=== PATIENT | male | born 1960 | race African-American/Black ===

== ENCOUNTER 2019-10-27 22:31 | Inpatient (IN) | payer MEDICAID ==
[~2019-10-27] VITALS: Ht 190.5 cm; Wt 61.7 kg
[2019-10-27] MEDS ORDERED: VANCOMYCIN 1 G PREMIX 200 ML IV ONE (22:45)
[2019-10-27] MEDS ORDERED: PIPERACILLIN/TAZ 3.375G PREMIX 50 ML IV ONE (22:45)
[2019-10-27] MEDS ORDERED: IPRATROPIUM BROMIDE (0.02%) 0.5MG/2.5ML NEB HHN STA (23:05)
[2019-10-27] MEDS ORDERED: METHYLPREDNISOLONE SOD SUCC 125 MG/2 ML VIAL IV STA (23:05)
[2019-10-27] MEDS ORDERED: ALBUTEROL (0.083%) 2.5MG/3ML NEB HHN STA (23:05)
[2019-10-28 00:06] LABS: HEMATOCRIT. 39.6 % (42.0-52.0); HEMOGLOBIN. 13.4 g/dL (14.0-18.0); MEAN CORPUSCULAR HEMOGLOBIN 30.5 pg (28.0-32.0); MEAN CORPUSCULAR VOLUME 89.7 fL (80.0-94.0); MEAN PLATELET VOLUME 7.3 fl (7.4-10.4); PLATELET 483 x1000/uL (130-400); RED BLOOD CELL COUNT 4.41 mill/uL (4.7-6.1)
[2019-10-28] MEDS: IPRATROPIUM/ALBUTEROL 0.5-3(2.5)MG/3ML NEB HHN SCH (00:10)
[2019-10-28 00:12] LABS: CHLORIDE 101 mEq/L (98-107)
[2019-10-28 00:16] LABS: INR 1.2; PROTHROMBIN TIME 12.4 sec (9.6-11.0)
[2019-10-28 00:17] LABS: BG BASE EXCESS 3.5 mmol/L (-2.0-2.0); BG CARBOXYHEMOGLOBIN 0.2 % (0.5-1.5); BG DEOXYHEMOGLOBIN 0.4 % (0.0-5.0); BG FRACTION INSPIRED OXYGEN 100; BG HCO3 ACT 31.4 mmol/L (22.0-26.0); BG METHEMOGLOBIN 0.4 % (0.0-1.5); BG OXYGEN SATURATION 99.6 % (92.0-98.5); BG PCO2 60.9 mmHg (35.0-45.0); BG PO2 282.9 mmHg (75.0-100.0); BG SAMPLE SITE RIGHT RADIAL; BG TIDAL VOLUME(mL) 500 mL; BG TOTAL HEMOGLOBIN 15.8 g/dL (12.0-18.0); BG VENT MODE VENT - A/C; BG VENT RATE 12 set
[2019-10-28] MEDS ORDERED: OLANZAPINE 10 MG/VIAL IM NR (01:45)
[2019-10-28] MEDS ORDERED: IPRATROPIUM/ALBUTEROL 0.5-3(2.5)MG/3ML NEB HHN PRN (02:15)
[2019-10-28 03:14] LABS: PLATELET ESTIMATE SLIGHTLY INCREASED
[2019-10-28] MEDS ORDERED: VANCOMYCIN 1500MG in DEXTROSE 5% WATER 250ML IV SCH (06:00)
[2019-10-28 06:22] LABS: CHLORIDE 98 mEq/L (98-107)
[2019-10-28] MEDS: PIPERACILLIN/TAZ 3.375G PREMIX 50 ML IV SCH ×2 (08:16→16:24)
[2019-10-28] MEDS: HYDROCORTISONE SOD SUCCINATE 100 MG/2 ML VIAL IV SCH ×3 (08:16→23:05)
[2019-10-28 08:49] LABS: BG BASE EXCESS 3.1 mmol/L (-2.0-2.0); BG CARBOXYHEMOGLOBIN 0.3 % (0.5-1.5); BG DEOXYHEMOGLOBIN 0.1 % (0.0-5.0); BG FRACTION INSPIRED OXYGEN 100; BG HCO3 ACT 30.7 mmol/L (22.0-26.0); BG METHEMOGLOBIN 0.1 % (0.0-1.5); BG OXYGEN SATURATION 99.9 % (92.0-98.5); BG OXYHEMOGLOBIN 99.5 % (94.0-97.0); BG PCO2 60.3 mmHg (35.0-45.0); BG PH 7.325 (7.350-7.450); BG PO2 417.8 mmHg (75.0-100.0); BG SAMPLE SITE RIGHT RADIAL; BG TIDAL VOLUME(mL) 500 mL; BG TOTAL HEMOGLOBIN 14.1 g/dL (12.0-18.0); BG VENT MODE VENT - A/C; BG VENT RATE 12 set
[2019-10-28] MEDS: ENOXAPARIN 40MG/0.4ML SYR SUBCUT SCH (10:26)
[2019-10-28] MEDS: LORAZEPAM 2MG/ML CPJ IV PRN (12:09)
[2019-10-28] MEDS ORDERED: CLONIDINE 0.1MG TABLET PO NR (14:15)
[2019-10-28] MEDS: VANCOMYCIN 1 G PREMIX 200 ML IV SCH ×2 (14:49→23:05)
[2019-10-28] MEDS: PANTOPRAZOLE SODIUM 40 MG/VIAL IV SCH (14:49)
[2019-10-28] MEDS: MULTIVITAMINS,THER W-MINERALS TABLET PO SCH (16:06)
[2019-10-28 18:53] LABS: BG BASE EXCESS 6.1 mmol/L (-2.0-2.0); BG CARBOXYHEMOGLOBIN 0.3 % (0.5-1.5); BG FRACTION INSPIRED OXYGEN 60; BG METHEMOGLOBIN 0.2 % (0.0-1.5); BG OXYHEMOGLOBIN 94.5 % (94.0-97.0); BG PCO2 64.5 mmHg (35.0-45.0); BG PO2 70.7 mmHg (75.0-100.0); BG SAMPLE SITE RIGHT RADIAL; BG TIDAL VOLUME(mL) 500 mL; BG VENT MODE VENT - A/C; BG VENT RATE 14 set
[2019-10-28] MEDS ORDERED: IOHEXOL-350 100 ML BOTTLE ONE (23:11)
[2019-10-29] MEDS: IPRATROPIUM/ALBUTEROL 0.5-3(2.5)MG/3ML NEB HHN SCH ×5 (04:00→20:15)
[2019-10-29 05:37] LABS: BASOPHILS % 0.2 % (0.0-2.0); HEMATOCRIT. 34.5 % (42.0-52.0); HEMOGLOBIN. 11.8 g/dL (14.0-18.0); LYMPHOCYTES % 7.4 % (20.0-50.0); MEAN CORPUSCULAR HEMOGLOBIN 30.4 pg (28.0-32.0); MEAN CORPUSCULAR VOLUME 88.9 fL (80.0-94.0); MONOCYTES % 5.8 % (2.0-8.0); NEUTROPHILS % 86.6 % (40.0-76.0); PLATELET 440 x1000/uL (130-400); RED BLOOD CELL COUNT 3.88 mill/uL (4.7-6.1); RED CELL DISTRIBUTION WIDTH 14.4 % (11.6-14.6)
[2019-10-29 05:49] LABS: CHLORIDE 98 mEq/L (98-107)
[2019-10-29] MEDS: VANCOMYCIN 1 G PREMIX 200 ML IV SCH (08:10)
[2019-10-29] MEDS: HYDROCORTISONE SOD SUCCINATE 100 MG/2 ML VIAL IV SCH ×3 (08:10→23:51)
[2019-10-29] MEDS: PIPERACILLIN/TAZ 3.375G PREMIX 50 ML IV SCH ×4 (08:10→23:51)
[2019-10-29] MEDS: ACETAMINOPHEN 325MG TABLET PO PRN (08:43)
[2019-10-29] MEDS: PANTOPRAZOLE SODIUM 40 MG/VIAL IV SCH (08:46)
[2019-10-29] MEDS: ENOXAPARIN 40MG/0.4ML SYR SUBCUT SCH (08:47)
[2019-10-29] MEDS: LORAZEPAM 2MG/ML CPJ IV PRN (09:07)
[2019-10-29] MEDS: MULTIVITAMINS,THER W-MINERALS TABLET PO SCH (09:49)
[2019-10-29 10:36] LABS: BG BASE EXCESS 6.5 mmol/L (-2.0-2.0); BG CARBOXYHEMOGLOBIN 0.3 % (0.5-1.5); BG DEOXYHEMOGLOBIN 1.6 % (0.0-5.0); BG FRACTION INSPIRED OXYGEN 60; BG HCO3 ACT 31.5 mmol/L (22.0-26.0); BG METHEMOGLOBIN 0.3 % (0.0-1.5); BG OXYGEN SATURATION 98.4 % (92.0-98.5); BG OXYHEMOGLOBIN 97.8 % (94.0-97.0); BG PCO2 47.2 mmHg (35.0-45.0); BG PH 7.442 (7.350-7.450); BG PO2 120.5 mmHg (75.0-100.0); BG SAMPLE SITE RIGHT RADIAL; BG TIDAL VOLUME(mL) 500 mL; BG VENT MODE VENT - A/C; BG VENT RATE 14 set
[2019-10-29] MEDS: VANCOMYCIN 750 MG PREMIX 150 ML IV SCH (16:40)
[2019-10-30] MEDS: LORAZEPAM 2MG/ML CPJ IV PRN ×5 (00:10→20:03)
[2019-10-30] MEDS: IPRATROPIUM/ALBUTEROL 0.5-3(2.5)MG/3ML NEB HHN SCH ×4 (00:15→20:20)
[2019-10-30 05:52] LABS: BASOPHILS % 0.3 % (0.0-2.0); EOSINOPHILS % 0.1 % (0.0-5.0); HEMATOCRIT. 33.9 % (42.0-52.0); HEMOGLOBIN. 11.5 g/dL (14.0-18.0); LYMPHOCYTES % 7.4 % (20.0-50.0); MEAN CORPUSCULAR HEMOGLOBIN 30.1 pg (28.0-32.0); MEAN CORPUSCULAR VOLUME 88.5 fL (80.0-94.0); MONOCYTES % 5.9 % (2.0-8.0); NEUTROPHILS % 86.3 % (40.0-76.0); PLATELET 446 x1000/uL (130-400); RED BLOOD CELL COUNT 3.83 mill/uL (4.7-6.1); RED CELL DISTRIBUTION WIDTH 14.5 % (11.6-14.6)
[2019-10-30 05:59] LABS: CHLORIDE 97 mEq/L (98-107)
[2019-10-30] MEDS: ENOXAPARIN 40MG/0.4ML SYR SUBCUT SCH (11:00)
[2019-10-30] MEDS: MULTIVITAMINS,THER W-MINERALS TABLET PO SCH (11:00)
[2019-10-30] MEDS: PIPERACILLIN/TAZ 3.375G PREMIX 50 ML IV SCH ×2 (11:00→16:00)
[2019-10-30] MEDS: VANCOMYCIN 750 MG PREMIX 150 ML IV SCH ×3 (11:00→16:00)
[2019-10-30] MEDS: HYDROCORTISONE SOD SUCCINATE 100 MG/2 ML VIAL IV SCH ×2 (11:00→14:00)
[2019-10-30] MEDS: PANTOPRAZOLE SODIUM 40 MG/VIAL IV SCH (11:00)
[2019-10-30] MEDS: ACETAMINOPHEN 325MG TABLET PO PRN (12:11)
[2019-10-30 13:10] LABS: BG BASE EXCESS 5.7 mmol/L (-2.0-2.0); BG CARBOXYHEMOGLOBIN 0.3 % (0.5-1.5); BG DEOXYHEMOGLOBIN 1.7 % (0.0-5.0); BG FRACTION INSPIRED OXYGEN 40; BG HCO3 ACT 31.1 mmol/L (22.0-26.0); BG METHEMOGLOBIN 0.3 % (0.0-1.5); BG OXYGEN SATURATION 98.3 % (92.0-98.5); BG OXYHEMOGLOBIN 97.7 % (94.0-97.0); BG PCO2 48.2 mmHg (35.0-45.0); BG PH 7.427 (7.350-7.450); BG PO2 113.7 mmHg (75.0-100.0); BG PRESSURE SUPPORT 10; BG SAMPLE SITE RIGHT RADIAL; BG TIDAL VOLUME(mL) 500 mL; BG VENT MODE VENT - SIMV; BG VENT RATE 4 set
[2019-10-30] MEDS ORDERED: KETOROLAC 30MG/ML VIAL IV NR ×2 (17:39→23:35)
[2019-10-30] MEDS ORDERED: CLONIDINE 0.2MG TABLET PO SCH (18:00)
[2019-10-30] MEDS: PIPERACILLIN/TAZOBACTAM 3.375 G in DEXT 5% WATER 100 ML IV SCH (22:00)
[2019-10-30] MEDS ORDERED: CLONIDINE 0.2MG TABLET PO PRN (23:35)
[2019-10-31] VITALS: BP 128/89
[2019-10-31] MEDS ORDERED: VANCOMYCIN 750 MG PREMIX 150 ML IV SCH
[2019-10-31] MEDS: HYDROCORTISONE SOD SUCCINATE 100 MG/2 ML VIAL IV SCH ×2 (00:08→05:26)
[2019-10-31] MEDS: ACETAMINOPHEN 325MG TABLET PO PRN (00:08)
[2019-10-31] MEDS: IPRATROPIUM/ALBUTEROL 0.5-3(2.5)MG/3ML NEB HHN SCH ×2 (00:55→04:50)
[2019-10-31 02:00] VITALS: BP 108/76
[2019-10-31 02:15] VITALS: BP 136/90
[2019-10-31 04:00] VITALS: BP 116/76
[2019-10-31] MEDS: PIPERACILLIN/TAZOBACTAM 3.375 G in DEXT 5% WATER 100 ML IV SCH (05:26)
[2019-10-31 05:46] VITALS: BP 113/78
[2019-10-31 06:00] VITALS: BP 118/82
[2019-10-31] MEDS ORDERED: CLONIDINE 0.2MG TABLET PO SCH (06:00)
== END 2019-10-31 13:01 | disposition short-term general hospital (02) | DRG 720 ==
LOC: ER 22:31 → MICUSO 10-28 22:40 → 5EST 10-30 21:02
PROVIDERS: ADMIT Ophthalmology; ATTEND Ophthalmology
PROC: 5A1945Z Respiratory Ventilation, 24-96 Consecutive Hours (ICD-10-PCS; principal; 2019-10-28)
DX: A41.9 Sepsis, unspecified organism (principal); Z99.11 Dependence on respirator [ventilator] status; J96.11 Chronic respiratory failure with hypoxia; J18.9 Pneumonia, unspecified organism; I11.0 Hypertensive heart disease with heart failure; J44.0 Chronic obstructive pulmonary disease with (acute) lower respiratory infection; Z93.0 Tracheostomy status; I50.9 Heart failure, unspecified; E78.00 Pure hypercholesterolemia, unspecified; E78.5 Hyperlipidemia, unspecified; J44.1 Chronic obstructive pulmonary disease with (acute) exacerbation; C80.1 Malignant (primary) neoplasm, unspecified; Z20.828 Contact with and (suspected) exposure to other viral communicable diseases; K21.9 Gastro-esophageal reflux disease without esophagitis; Z93.1 Gastrostomy status
CPT/HCPCS: 36415; 36600; 71045; 71275; 80048; 80053; 80202; 82375; 82728; 82805; 82962; 83605; 83615; 83880; 84145; 84443; 84484; 85025; 85379; 86140; 93005; 94002; 94003; 94640; 99291; C9113; J1650; J1720; J1885; J2060; J2543; J2930; J3370; J3490; J7060; Q9967; C9803-CS; U0003-CS

== ENCOUNTER 2019-11-16 03:04 | Inpatient (IN) | payer MEDICAID, OTHER ==
[2019-11-16] VITALS (37 sets, daily range): BP systolic 113–164; BP diastolic 67–90
[~2019-11-16] VITALS: Ht 172.7 cm; Wt 76.2 kg
[2019-11-16] MEDS ORDERED: MIDAZOLAM HCL 2 MG/2 ML VIAL IV ONE (03:15)
[2019-11-16 03:46] LABS: BG BASE EXCESS 3.6 mmol/L (-2.0-2.0); BG CARBOXYHEMOGLOBIN 0.3 % (0.5-1.5); BG FRACTION INSPIRED OXYGEN 100; BG METHEMOGLOBIN 0.3 % (0.0-1.5); BG OXYGEN SATURATION 79.9 % (92.0-98.5); BG OXYHEMOGLOBIN 79.4 % (94.0-97.0); BG PCO2 41.6 mmHg (35.0-45.0); BG PH 7.446 (7.350-7.450); BG PO2 43.7 mmHg (75.0-100.0); BG SAMPLE SITE RIGHT RADIAL; BG TIDAL VOLUME(mL) 500 mL; BG TOTAL HEMOGLOBIN 11.9 g/dL (12.0-18.0); BG VENT MODE VENT - A/C; BG VENT RATE 16 set
[2019-11-16 03:52] LABS: BASOPHILS % 0.5 % (0.0-2.0); EOSINOPHILS % 1.4 % (0.0-5.0); HEMATOCRIT. 34.2 % (42.0-52.0); HEMOGLOBIN. 11.4 g/dL (14.0-18.0); LYMPHOCYTES % 12.6 % (20.0-50.0); MEAN CORPUSCULAR HEMOGLOBIN 29.6 pg (28.0-32.0); MEAN CORPUSCULAR VOLUME 88.7 fL (80.0-94.0); MEAN PLATELET VOLUME 7.3 fl (7.4-10.4); MONOCYTES % 5.8 % (2.0-8.0); NEUTROPHILS % 79.7 % (40.0-76.0); PLATELET 359 x1000/uL (130-400); RED BLOOD CELL COUNT 3.86 mill/uL (4.7-6.1); RED CELL DISTRIBUTION WIDTH 15.5 % (11.6-14.6)
[2019-11-16 03:54] LABS: CHLORIDE 103 mEq/L (98-107)
[2019-11-16 03:58] LABS: INR 1.1; PROTHROMBIN TIME 11.4 sec (9.6-11.0)
[2019-11-16] MEDS ORDERED: VANCOMYCIN 1 G PREMIX 200 ML IV SCH (04:15)
[2019-11-16] MEDS ORDERED: PIPERACILLIN/TAZOBACTAM 3.375GM/50ML PREMIX IV ONE (04:15)
[2019-11-16 05:14] LABS: CLARITY URINE CLEAR (CLEAR); COLOR URINE YELLOW (YELLOW); KETONES URINE NEGATIVE (NEGATIVE); LEUKOCYTE ESTERASE URINE 1+ (NEGATIVE); NITRITE URINE NEGATIVE (NEGATIVE); OCCULT BLOOD URINE NEGATIVE (NEGATIVE); PROTEIN URINE TRACE (NEGATIVE); UROBILINOGEN URINE 0.2 E.U./dL (0.2-1.0)
[2019-11-16] MEDS: ACETYLCYSTEINE 200MG/ML 20% VIAL 4ML INH SCH (08:30)
[2019-11-16] MEDS ORDERED: IPRATROPIUM/ALBUTEROL 0.5-3(2.5)MG/3ML NEB HHN PRN (09:30)
[2019-11-16] MEDS: PIPERACILLIN/TAZOBACTAM 3.375 G in DEXT 5% WATER 100 ML IV SCH ×2 (11:00→18:19)
[2019-11-16] MEDS ORDERED: LIDOCAINE HCL/PF 1% 2ML VIAL ONE (11:04)
[2019-11-16 11:27] LABS: BG CARBOXYHEMOGLOBIN 0.3 % (0.5-1.5); BG DEOXYHEMOGLOBIN 2.1 % (0.0-5.0); BG FRACTION INSPIRED OXYGEN 100; BG HCO3 ACT 28.1 mmol/L (22.0-26.0); BG METHEMOGLOBIN 0.4 % (0.0-1.5); BG OXYGEN SATURATION 97.9 % (92.0-98.5); BG OXYHEMOGLOBIN 97.2 % (94.0-97.0); BG PCO2 40.3 mmHg (35.0-45.0); BG PH 7.461 (7.350-7.450); BG PO2 105.8 mmHg (75.0-100.0); BG SAMPLE SITE RIGHT RADIAL; BG TIDAL VOLUME(mL) 500 mL; BG TOTAL HEMOGLOBIN 10.9 g/dL (12.0-18.0); BG VENT MODE VENT - A/C; BG VENT RATE 16 set
[2019-11-16] MEDS: IPRATROPIUM/ALBUTEROL 0.5-3(2.5)MG/3ML NEB HHN SCH ×3 (12:20→20:15)
[2019-11-16] MEDS: VANCOMYCIN 1 G PREMIX 200 ML IV SCH ×2 (13:37→22:26)
[2019-11-16] MEDS: ENOXAPARIN 40MG/0.4ML SYR SUBCUT SCH (13:37)
[2019-11-16] MEDS: MORPHINE SULFATE 2 MG/ML CPJ (NOT FOR IM USE) IV PRN (13:38)
[2019-11-16] MEDS: LORAZEPAM 2MG/ML CPJ IV PRN (15:35)
[2019-11-17] VITALS (76 sets, daily range): BP systolic 74–165; BP diastolic 31–91
[2019-11-17] MEDS: IPRATROPIUM/ALBUTEROL 0.5-3(2.5)MG/3ML NEB HHN SCH ×6 (00:30→20:57)
[2019-11-17] MEDS: LORAZEPAM 2MG/ML CPJ IV PRN ×2 (04:41→09:13)
[2019-11-17] MEDS: VANCOMYCIN 1 G PREMIX 200 ML IV SCH ×3 (05:20→23:39)
[2019-11-17] MEDS: PIPERACILLIN/TAZOBACTAM 3.375 G in DEXT 5% WATER 100 ML IV SCH ×5 (05:20→18:13)
[2019-11-17 05:55] LABS: BASOPHILS % 0.5 % (0.0-2.0); EOSINOPHILS % 0.9 % (0.0-5.0); HEMATOCRIT. 30.1 % (42.0-52.0); LYMPHOCYTES % 9.2 % (20.0-50.0); MEAN CORPUSCULAR HEMOGLOBIN 29.8 pg (28.0-32.0); MEAN CORPUSCULAR VOLUME 89.9 fL (80.0-94.0); MEAN PLATELET VOLUME 7.4 fl (7.4-10.4); MONOCYTES % 10.6 % (2.0-8.0); NEUTROPHILS % 78.8 % (40.0-76.0); PLATELET 320 x1000/uL (130-400); RED BLOOD CELL COUNT 3.35 mill/uL (4.7-6.1); RED CELL DISTRIBUTION WIDTH 15.3 % (11.6-14.6)
[2019-11-17 05:58] LABS: CHLORIDE 102 mEq/L (98-107)
[2019-11-17 09:11] LABS: BG BASE EXCESS 6.6 mmol/L (-2.0-2.0); BG CARBOXYHEMOGLOBIN 0.3 % (0.5-1.5); BG DEOXYHEMOGLOBIN 0.4 % (0.0-5.0); BG FRACTION INSPIRED OXYGEN 100; BG HCO3 ACT 34.6 mmol/L (22.0-26.0); BG METHEMOGLOBIN 0.4 % (0.0-1.5); BG OXYGEN SATURATION 99.6 % (92.0-98.5); BG OXYHEMOGLOBIN 98.9 % (94.0-97.0); BG PCO2 71.3 mmHg (35.0-45.0); BG PH 7.304 (7.350-7.450); BG PO2 342.4 mmHg (75.0-100.0); BG SAMPLE SITE RIGHT RADIAL; BG TIDAL VOLUME(mL) 500 mL; BG VENT MODE VENT - A/C; BG VENT RATE 16 set
[2019-11-17] MEDS: ENOXAPARIN 40MG/0.4ML SYR SUBCUT SCH (12:11)
[2019-11-17] MEDS: MORPHINE SULFATE 2 MG/ML CPJ (NOT FOR IM USE) IV PRN ×3 (12:12→22:54)
[2019-11-17] MEDS: ACETYLCYSTEINE 200MG/ML 20% VIAL 4ML INH SCH (15:52)
[2019-11-17] MEDS: FAMOTIDINE 20MG/2ML VIAL IV SCH (22:42)
[2019-11-18] VITALS (55 sets, daily range): BP systolic 77–117; BP diastolic 43–80
[2019-11-18] MEDS: IPRATROPIUM/ALBUTEROL 0.5-3(2.5)MG/3ML NEB HHN SCH ×6 (00:04→20:13)
[2019-11-18] MEDS: PIPERACILLIN/TAZOBACTAM 3.375 G in DEXT 5% WATER 100 ML IV SCH ×4 (01:26→18:14)
[2019-11-18 06:07] LABS: BASOPHILS % 0.5 % (0.0-2.0); EOSINOPHILS % 0.7 % (0.0-5.0); HEMOGLOBIN. 8.2 g/dL (14.0-18.0); LYMPHOCYTES % 11.6 % (20.0-50.0); MEAN CORPUSCULAR HEMOGLOBIN 29.2 pg (28.0-32.0); MEAN CORPUSCULAR VOLUME 88.8 fL (80.0-94.0); MEAN PLATELET VOLUME 7.3 fl (7.4-10.4); MONOCYTES % 10.1 % (2.0-8.0); NEUTROPHILS % 77.1 % (40.0-76.0); PLATELET 267 x1000/uL (130-400); RED BLOOD CELL COUNT 2.82 mill/uL (4.7-6.1); RED CELL DISTRIBUTION WIDTH 15.4 % (11.6-14.6)
[2019-11-18] MEDS: ACETYLCYSTEINE 200MG/ML 20% VIAL 4ML INH SCH ×4 (06:18→20:13)
[2019-11-18 06:39] LABS: CHLORIDE 101 mEq/L (98-107)
[2019-11-18] MEDS: VANCOMYCIN 1 G PREMIX 200 ML IV SCH ×3 (07:33→22:01)
[2019-11-18 08:52] LABS: BG BASE EXCESS 0.3 mmol/L (-2.0-2.0); BG CARBOXYHEMOGLOBIN 0.3 % (0.5-1.5); BG DEOXYHEMOGLOBIN 4.1 % (0.0-5.0); BG FRACTION INSPIRED OXYGEN 40; BG HCO3 ACT 23.9 mmol/L (22.0-26.0); BG METHEMOGLOBIN 0.1 % (0.0-1.5); BG OXYGEN SATURATION 95.9 % (92.0-98.5); BG OXYHEMOGLOBIN 95.5 % (94.0-97.0); BG PCO2 34.3 mmHg (35.0-45.0); BG PH 7.461 (7.350-7.450); BG PO2 85.6 mmHg (75.0-100.0); BG SAMPLE SITE RIGHT RADIAL; BG TIDAL VOLUME(mL) 500 mL; BG TOTAL HEMOGLOBIN 8.3 g/dL (12.0-18.0); BG VENT MODE VENT - A/C; BG VENT RATE 14 set
[2019-11-18] MEDS: ACETAMINOPHEN 325MG TABLET PO PRN (09:36)
[2019-11-18] MEDS: FAMOTIDINE 20MG/2ML VIAL IV SCH ×2 (09:36→22:01)
[2019-11-18] MEDS: ENOXAPARIN 40MG/0.4ML SYR SUBCUT SCH (11:18)
[2019-11-18] MEDS: SODIUM CHLORIDE 0.9% 1,000 ML IV ONE ×2 (13:24→14:10)
[2019-11-18] MEDS: MORPHINE SULFATE 2 MG/ML CPJ (NOT FOR IM USE) IV PRN ×2 (15:35→21:52)
[2019-11-18 15:51] LABS: HEMATOCRIT 25.5 % (42.0-52.0); HEMOGLOBIN 8.4 g/dL (14.0-18.0)
[2019-11-19] VITALS (47 sets, daily range): BP systolic 83–137; BP diastolic 39–75
[2019-11-19] MEDS: IPRATROPIUM/ALBUTEROL 0.5-3(2.5)MG/3ML NEB HHN SCH ×6 (00:14→21:23)
[2019-11-19] MEDS: PIPERACILLIN/TAZOBACTAM 3.375 G in DEXT 5% WATER 100 ML IV SCH ×3 (00:20→12:03)
[2019-11-19] MEDS: MORPHINE SULFATE 2 MG/ML CPJ (NOT FOR IM USE) IV PRN ×2 (03:17→13:56)
[2019-11-19] MEDS: LORAZEPAM 2MG/ML CPJ IV PRN ×3 (04:26→15:19)
[2019-11-19 05:55] LABS: BASOPHILS % 0.2 % (0.0-2.0); EOSINOPHILS % 1.4 % (0.0-5.0); HEMATOCRIT. 24.6 % (42.0-52.0); HEMOGLOBIN. 8.2 g/dL (14.0-18.0); LYMPHOCYTES % 9.9 % (20.0-50.0); MEAN CORPUSCULAR HEMOGLOBIN 29.8 pg (28.0-32.0); MEAN CORPUSCULAR VOLUME 89.4 fL (80.0-94.0); MEAN PLATELET VOLUME 7.2 fl (7.4-10.4); MONOCYTES % 9.1 % (2.0-8.0); NEUTROPHILS % 79.4 % (40.0-76.0); PLATELET 274 x1000/uL (130-400); RED BLOOD CELL COUNT 2.75 mill/uL (4.7-6.1); RED CELL DISTRIBUTION WIDTH 15.6 % (11.6-14.6)
[2019-11-19 06:00] LABS: CHLORIDE 102 mEq/L (98-107)
[2019-11-19] MEDS: VANCOMYCIN 1 G PREMIX 200 ML IV SCH ×2 (07:09→14:24)
[2019-11-19] MEDS: ACETYLCYSTEINE 200MG/ML 20% VIAL 4ML INH SCH ×3 (08:56→21:22)
[2019-11-19 09:03] LABS: BG BASE EXCESS 6.1 mmol/L (-2.0-2.0); BG CARBOXYHEMOGLOBIN 0.1 % (0.5-1.5); BG DEOXYHEMOGLOBIN 2.1 % (0.0-5.0); BG FRACTION INSPIRED OXYGEN 40; BG HCO3 ACT 30.3 mmol/L (22.0-26.0); BG METHEMOGLOBIN 0.5 % (0.0-1.5); BG OXYGEN SATURATION 97.9 % (92.0-98.5); BG OXYHEMOGLOBIN 97.3 % (94.0-97.0); BG PCO2 42.3 mmHg (35.0-45.0); BG PH 7.473 (7.350-7.450); BG PO2 102.9 mmHg (75.0-100.0); BG SAMPLE SITE RIGHT RADIAL; BG TIDAL VOLUME(mL) 500 mL; BG TOTAL HEMOGLOBIN 8.7 g/dL (12.0-18.0); BG VENT MODE VENT - A/C; BG VENT RATE 14 set
[2019-11-19] MEDS: FAMOTIDINE 20MG/2ML VIAL IV SCH ×2 (09:03→20:35)
[2019-11-19] MEDS ORDERED: CEFTRIAXONE 1 G PREMIX 50 ML IV SCH (15:00)
[2019-11-19] MEDS ORDERED: MORPHINE SULFATE 2 MG/ML CPJ (NOT FOR IM USE) IV NR (15:15)
[2019-11-19] MEDS: CEFTRIAXONE 1,000 MG in DEXTROSE 5% WATER 50 ML IV SCH (17:15)
[2019-11-19] MEDS: ACETAMINOPHEN 325MG TABLET PO PRN (17:15)
[2019-11-19] MEDS: METRONIDAZOLE 500MG TABLET PO SCH (20:35)
[2019-11-20] VITALS (12 sets, daily range): BP systolic 96–138; BP diastolic 56–82
[2019-11-20] MEDS: ACETYLCYSTEINE 200MG/ML 20% VIAL 4ML INH SCH ×2 (06:00→13:00)
[2019-11-20 06:23] LABS: HEMOGLOBIN 8.1 g/dL (14.0-18.0); MEAN CORPUSCULAR HEMOGLOBIN 29.7 pg (28.0-32.0); MEAN CORPUSCULAR VOLUME 88.6 fL (80.0-94.0); PLATELET 267 x1000/uL (130-400); RED BLOOD CELL COUNT 2.71 mill/uL (4.7-6.1); RED CELL DISTRIBUTION WIDTH 15.5 % (11.6-14.6)
[2019-11-20 06:27] LABS: CHLORIDE 104 mEq/L (98-107)
[2019-11-20] MEDS: FAMOTIDINE 20MG/2ML VIAL IV SCH ×2 (08:33→20:19)
[2019-11-20] MEDS: METRONIDAZOLE 500MG TABLET PO SCH ×2 (08:33→20:19)
[2019-11-20] MEDS: IPRATROPIUM/ALBUTEROL 0.5-3(2.5)MG/3ML NEB HHN SCH ×4 (09:42→20:22)
[2019-11-20 13:36] LABS: BG BASE EXCESS 5.7 mmol/L (-2.0-2.0); BG CARBOXYHEMOGLOBIN 0.3 % (0.5-1.5); BG DEOXYHEMOGLOBIN 4.4 % (0.0-5.0); BG FRACTION INSPIRED OXYGEN 40; BG HCO3 ACT 30.8 mmol/L (22.0-26.0); BG METHEMOGLOBIN 0.1 % (0.0-1.5); BG OXYGEN SATURATION 95.6 % (92.0-98.5); BG OXYHEMOGLOBIN 95.2 % (94.0-97.0); BG PCO2 48.4 mmHg (35.0-45.0); BG PH 7.422 (7.350-7.450); BG PO2 77.3 mmHg (75.0-100.0); BG PRESSURE SUPPORT 10; BG SAMPLE SITE RIGHT RADIAL; BG TIDAL VOLUME(mL) 500 mL; BG TOTAL HEMOGLOBIN 8.8 g/dL (12.0-18.0); BG VENT MODE VENT - SIMV; BG VENT RATE 4 set
[2019-11-20] MEDS: CEFTRIAXONE 1,000 MG in DEXTROSE 5% WATER 50 ML IV SCH (13:48)
[2019-11-20] MEDS: MORPHINE SULFATE 2 MG/ML CPJ (NOT FOR IM USE) IV PRN ×2 (14:03→20:21)
[2019-11-20] MEDS: LORAZEPAM 2MG/ML CPJ IV PRN ×2 (14:03→21:22)
[2019-11-20] MEDS: CEPHALEXIN 250MG CAPSULE PO SCH ×2 (16:48→20:20)
[2019-11-20] MEDS: ACETYLCYSTEINE 100MG/ML 10% VIAL 4ML INH SCH ×2 (17:31→20:23)
[2019-11-20] MEDS ORDERED: CEPHALEXIN 250 MG/5 ML 100ML PO SCH (18:00)
== END 2019-11-20 22:38 | DRG 130 ==
LOC: ER 03:04 → MICUSO 04:30 → EDBEDREQSVC 04:57 → EDBEDREQ 04:57 → EDBEDREQTM 04:57 → ENRESERV 07:57 → CVICU 11-17 11:31 → 5EST 11-20 00:43
PROVIDERS: ADMIT Ophthalmology; ATTEND Ophthalmology
PROC: 5A1955Z Respiratory Ventilation, Greater than 96 Consecutive Hours (ICD-10-PCS; 2019-11-16)
PROC: 02HV33Z Insertion of Infusion Device into Superior Vena Cava, Percutaneous Approach (ICD-10-PCS; principal; 2019-11-18)
PROC: B548ZZA Ultrasonography of Superior Vena Cava, Guidance (ICD-10-PCS; 2019-11-18)
PROC: 0B21XFZ Change Tracheostomy Device in Trachea, External Approach (ICD-10-PCS; 2019-11-19)
DX: J95.03 Malfunction of tracheostomy stoma (principal); J96.21 Acute and chronic respiratory failure with hypoxia; J18.9 Pneumonia, unspecified organism; I50.9 Heart failure, unspecified; J98.19 Other pulmonary collapse; J44.0 Chronic obstructive pulmonary disease with (acute) lower respiratory infection; N39.0 Urinary tract infection, site not specified; D64.9 Anemia, unspecified; Z20.828 Contact with and (suspected) exposure to other viral communicable diseases; I07.1 Rheumatic tricuspid insufficiency; B96.4 Proteus (mirabilis) (morganii) as the cause of diseases classified elsewhere; B96.89 Other specified bacterial agents as the cause of diseases classified elsewhere; E78.00 Pure hypercholesterolemia, unspecified; E78.5 Hyperlipidemia, unspecified; G89.29 Other chronic pain; K21.9 Gastro-esophageal reflux disease without esophagitis; I25.10 Atherosclerotic heart disease of native coronary artery without angina pectoris; I27.20 Pulmonary hypertension, unspecified; J44.1 Chronic obstructive pulmonary disease with (acute) exacerbation; J93.82 Other air leak; R13.10 Dysphagia, unspecified; Z99.11 Dependence on respirator [ventilator] status
CPT/HCPCS: 36415; 36600; 71045; 76937; 80048; 80053; 80202; 81003; 82375; 82728; 82805; 83605; 84145; 84484; 85014; 85018; 85025; 85027; 86140; 87070; 87077; 87186; 93005; 93306; 93970; 94002; 94003; 94640; 99291; C1725; J0696; J1650; J2060; J2250; J2270; J2543; J3370; J3490; J7060; J7608; U0003-CS